=== PATIENT | male | born 1975 | race Caucasian/White ===

== ENCOUNTER 2016-09-17 16:18 | Inpatient (IN) | payer MEDICAID, OTHER ==
[~2016-09-17] VITALS: Ht 172.7 cm; Wt 71.0 kg
[2016-09-17] MEDS ORDERED: ADACEL/BOOSTRIX VACCINE (DIPHTH/PERTUSS/ACELL/TETANUS)0.5ML SYR (90715) IM ONE (17:00)
[2016-09-17] MEDS ORDERED: NS 1,000 ML IV ONE (17:00)
[2016-09-17] MEDS ORDERED: ISOVUE-370 76% 100ML VIAL (Q9967) As Ordered ONE (17:15)
[2016-09-17 17:27] LABS: BASO % 0.2 % (0.0-1.0); EOS % 0.4 % (0.0-3.0); LARGE UNSTAINED CELL # 0.1 K/mm3 (0.0-0.4); LARGE UNSTAINED CELL % 0.9 % (0.0-4.0); LYMPH % 13.2 % (24.0-44.0); MONO % 6.6 % (0.0-5.0); NEUTROPHILS # 11.8 K/mm3 (1.8-7.7); NEUTROPHILS % 78.6 % (36.0-66.0); PLATELET COUNT, AUTOMATED 165 k/mm3 (150-450)
[2016-09-17 17:42] LABS: MEAN CORPUSCULAR HEMOGLOBIN 31.2 pg (27.0-33.0); MEAN CORPUSCULAR HGB CONC 35.1 g/dl (32.0-36.5); MEAN CORPUSCULAR VOLUME 88.9 fl (80.0-96.0); RED CELL DISTRIBUTION WIDTH 12.3 % (11.5-14.5)
[2016-09-17] MEDS: MORPHINE 4 MG/ML 1ML SYRINGE IV PRN ×2 (17:42→17:50)
[2016-09-17 17:52] LABS: ALBUMIN 3.6 GM/DL (3.2-5.2); ALBUMIN/GLOBULIN RATIO 1.64 (1.00-1.93); ALKALINE PHOSPHATASE 54 U/L (45-117); ALT/SGPT 31 U/L (12-78); AMYLASE 50 U/L (25-115); ANION GAP 9 MEQ/L (8-16); AST/SGOT 37 U/L (15-37); BILIRUBIN,DIRECT 0.1 MG/DL (0.0-0.2); BILIRUBIN,TOTAL 0.4 MG/DL (0.2-1.0); BLOOD UREA NITROGEN 16 MG/DL (7-18); CALCIUM LEVEL 8.2 MG/DL (8.5-10.1); CARBON DIOXIDE LEVEL 23 MEQ/L (21-32); CHLORIDE LEVEL 107 MEQ/L (98-107); CREATININE FOR GFR 1.32 MG/DL (0.70-1.30); GLOMERULAR FILTRATION RATE > 60.0 (>60); GLUCOSE, FASTING 104 MG/DL (70-105); POTASSIUM SERUM 4.5 MEQ/L (3.5-5.1); SODIUM LEVEL 139 MEQ/L (136-145); TOTAL PROTEIN 5.8 GM/DL (6.4-8.2)
--- NOTE | 2016-09-17 18:06 | REP ---
CT HEAD WITHOUT CONTRAST: REASON: Headache after trauma. PRIORS: None. TECHNIQUE: 4.5 mm contiguous transaxial sections were obtained from the skull base to the cerebral convexities with thin cuts through the posterior fossa without the administration of intravenous contrast. FINDINGS: The ventricles and sulci are consistent with the patient's age. There are no extra-axial fluid collections. There is no mass effect. The deep cerebral white matter is consistent with the patient's age. The orbital and petrous structures, cerebellopontine angles, and posterior fossa are unremarkable. The sella turcica, cavernous, and paracavernous structures are essentially unremarkable. The visualized portions of the paranasal sinuses and mastoid air cells are clear. Images of the skull base show no gross abnormality. IMPRESSION: Essentially unremarkable CT examination of the brain. Signed by Lyle Fleming DO 09/17/2016 06:28 P
--- NOTE | 2016-09-17 18:08 | REP ---
CT CERVICAL SPINE WITHOUT CONTRAST: HISTORY: Pain in the neck after trauma. COMPARISON: None. Vertebral body height and alignment is within normal limits. The facet joints are well aligned bilaterally. There is no cervical spine fracture. There is mild degenerative disc narrowing seen at the C4-5 and C5-6 levels where there is anterior and posterior osteophytic ridging. There is no abnormal paraspinal soft tissue swelling. IMPRESSION: No fracture. Chronic changes as described above. Signed by Lyle Fleming DO 09/17/2016 06:29 P
[2016-09-17] MEDS ORDERED: NICOTINE 21MG/24HR 1 EA TRANSDERMAL TD ONE (18:30)
--- NOTE | 2016-09-17 18:35 | ECGEPIP ---
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
[2016-09-17] MEDS ORDERED: NEXI1CAP4 PO (18:43)
[2016-09-17] MEDS ORDERED: ALEV220T26 PO (18:43)
[2016-09-17] MEDS ORDERED: MORPHINE 4 MG/ML 1ML SYRINGE IV ONE ×2 (18:45→19:45)
[2016-09-17] MEDS ORDERED: NS 1,000 ML IV SCH (19:50)
[2016-09-17] MEDS: LR 1,000 ML IV SCH (19:50)
[2016-09-17] MEDS ORDERED: NALBUPHINE HCL 10 MG/ML AMP (J2300) IV PRN (20:00)
[2016-09-17] MEDS ORDERED: PROMETHAZINE INJ 25 MG/ML VIAL (J2550) IV PRN (20:00)
[2016-09-17] MEDS ORDERED: METOCLOPRAMIDE INJ 10MG/2ML VIAL (J2765) IV PRN (20:00)
[2016-09-17] MEDS ORDERED: ONDANSETRON 4MG/2ML VIAL (J2405) IV PRN (20:00)
[2016-09-17] MEDS ORDERED: EPIDURAL/PCA KEYS XX PRN (20:00)
[2016-09-17] MEDS ORDERED: diphenhydrAMINE INJ 50MG/ML VIAL (J1200) IV PRN (20:00)
[2016-09-17] MEDS ORDERED: NALOXONE INJ 0.4 MG/1 ML VIAL (J2310) IV PRN (20:00)
--- NOTE | 2016-09-17 20:14 | HPE ---
DATE OF ADMISSION: 09/17/2016 CHIEF COMPLAINT: Trauma. HISTORY OF PRESENT ILLNESS: The patient is a 41-year-old male who was in the [place] cutting down trees and when he had bent over to tie his shoe a tree very distant from him fell and fell onto his back. The diameter of the base of the tree was about 15 inches. The tree itself was 50-60 feet tall and the upper portions of it fell on his back. It pushed him to the ground and even he, as well as the tree, bounced after hitting the ground. This was a witnessed event and he did not have any loss of consciousness, did not have any neurologic complaints in his lower extremities or upper extremities. Did not complain of any abdominal pain. No nausea or vomiting. No fevers or chills. No evidence of respiratory complaints or shortness of breath. No head trauma at that time. Does not have any history of hematuria, although presented to the emergency room with some hematuria. Had undergone x-rays up at [facility] and was transferred here for further studies which revealed trauma to the lower back including probable kidney contusion, psoas muscle contusion and several lumbar spinous process fractures. PAST MEDICAL HISTORY: Significant for gastroesophageal (GE) reflux, history of osteoarthritis, history of subdural hematoma. MEDICATIONS: Include: - Nexium - Naprosyn PHYSICAL EXAMINATION: Reveals a 41-year-old male who looks stated age. HEENT: Reveals an atraumatic, normocephalic head with extraocular movements intact. Pupils are equal and reactive to light. Sclerae nonicteric. Oropharynx clear without exudate or lesions. Neck is supple without adenopathy. Lungs are clear to auscultation without crackles, wheezes or rhonchi. Heart is regular without murmur. Abdomen is soft, nondistended. He has some mild tenderness in the left lateral abdomen. He states that even though it is sore to palpation, it is not his abdominal wall that is sore, it is the pressure that it puts on his lower back and his flank area that hurts. On his back exam he does have some abrasions on his lower back area. No significant contusions, he is tender throughout this area on the left side just above his iliac crest extending for about 8-10 inches. He has some numbness in this area as well but no numbness into his lower extremities. He has all sensory as well as motor intact to his extremities, both upper and lower. He does have some abrasions on his left arm. He does complain of some mild discomfort on his left knee but without any abrasions, without any pain and discomfort with movement. The patient had a trauma with a lower back injury. Specifically he has a psoas muscle hematoma. He has fractures of the transverse processes of L1-L4 on the left-hand side. He has hematuria but otherwise no other significant intra-abdominal process. No respiratory or neurologic complaints. No evidence of extremity injuries. IMPRESSION AND PLAN: Neurologic. No significant neurologic injuries have occurred although he has some minimal numbness in the cutaneous area of his abrasion on his left back area. I anticipate this may be some contusion of superficial nerves in this area / skin nerves, but I would recommend that without any dermatomal distribution, etc., will continue his close evaluation. From an abdominal standpoint, will start him on a clear liquid diet today, progress him to a regular diet tomorrow if he is tolerating a clear liquid diet. 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 We will see how he does overnight and as long as his hematuria starts to clear up we may restart his nonsteroidals as well. From my standpoint, I do feel that we need to progress his activity as tolerated depending on what the orthopedic physicians make as recommendations for this. Dr. Justin Westfall will be seeing him for his lumbar fractures and otherwise we will keep him at bedrest tonight and progress his activity as per the orthopedic physician's recommendations.
[2016-09-17] MEDS ORDERED: MORPHINE 4 MG/ML 1ML SYRINGE IV PRN (20:45)
--- NOTE | 2016-09-17 20:49 | CR ---
DATE OF CONSULTATION: 09/17/2016 REASON FOR CONSULTATION: Lumbar spine fractures. 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 He describes no loss of consciousness. Complains of pain and soreness in his low back predominantly. Was able to get up to his knees and realized he really could not get up and his friend, who was there, a coworker, and they managed to walk him arm-in-arm out of the [place] after about an hour to the [place] and then transferred him to [facility] where he was evaluated and then transferred to [facility] for further evaluation and care. He was evaluated by the emergency room staff and is being admitted by Dr. Valdez, general surgeon, under the trauma protocol because of some microscopic hematuria. He was found to have multiple transverse process fractures and a hematoma in the lumbar spine. He complains of isolated soreness basically to the lumbar spine, it is quite uncomfortable and painful. He also does complain of numbness in the base of the lumbar spine radiating down toward the left hip. Does not complain of numbness or tingling in his lower extremities or his toes or feet and/or perineal numbness. Upper extremities he does not report any pain or soreness. His past medical history is otherwise fairly unremarkable, although he had a remote history of what he describes as a subdural hematoma that required some type of cauterization, sounds like it could have been an intracerebral hemorrhage from an aneurysm because they described the [place] [facility] [place] but that was quite a few years ago. Otherwise, he is on no medications. ALLERGIES: No allergies. No previous surgeries otherwise. He does smoke cigarettes. Does not drink alcohol excessively. 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 He is here with his friends and other family members. I examined him with Santi Valdez, the general surgeon. On exam, he is a healthy appearing male, alert, and he is oriented. He has no obvious trauma to his head and no tenderness of his cervical or thoracic spine. His upper extremities he can fully elevate up overhead. No tenderness over his shoulders, clavicles, humeri, elbows, forearms, wrists, or hands. There is an abrasion over the posterior aspect of the Left triceps area. His spine examination, lower on the lumbar side, there is marked tenderness with a reddish contusion area over the base of the lumbar spine, mainly on the left side with marked tenderness, also a decreased sensation in the skin to light touch in that area that extends down toward the iliac crest and just below toward the gluteal muscle area, then the sensation becomes normalized in both lower extremities. He has good strong pulses at the dorsalis pedis and posterior tibialis bilaterally. He has intact reflexes at the quadriceps and the ankles. Normal motor strength, ankle dorsiflexors and plantar flexors. It is painful to do a straight leg raise on the left side because it hurts his back, but I can passively internally and externally rotate his hip on the left side without pain or irritability in the groin and his right leg he can do a straight leg raise quite comfortably. His left knee has no effusion or evidence of medial, laterl , anterior or posterior laxity. RADIOGRAPHS: CT scan of his thoracic spine was unremarkable. Lumbar spine you can see multiple transverse process fractures, especially on the left side, but there also appears to be a transverse process fracture on the right side, it is either L3 or L4, and then on the sagittal image there may be an extension into L4, difficult to say. Head CT, chest CT, cervical spine CT was otherwise unremarkable. Abdomen and pelvis CT can see a hematoma in the psoas muscle around the left kidney. Formal radiographic readings from the radiologist are still pending. [facility] including Pelvis, left knee, thoracic and lumbar spine xrays were also reviewed. LABORATORY STUDIES: His hematocrit was 38.9, white count of 15, platelet count of 165. Chemistries were unremarkable and electrolytes. BUN 16, creatinine 1.32. Lactic acid was somewhat elevated at 2.1, calcium 8.2, CK was 873 with an MB fraction of 18.5, total protein 5.8. Urinalysis he had 8 red blood cells, otherwise it was unremarkable. IMPRESSION: Significant contusion with multiple transverse process fractures of his lumbar spine. Appears to be a stable injury but I will consult with our spine surgeon for formal activity recommendations and specifically bracing or not. Right now he is going to be admitted for pain control, observation, and monitor his renal function as well as monitor for the development of other potential abdominal or pelvic soft tissue trauma under the care of Dr. Valdez, and I discussed this with him in detail. [place]
[2016-09-17] MEDS: ONDANSETRON 4MG/2ML VIAL (J2405) IV PRN (20:53)
[2016-09-17] MEDS: MORPHINE PCA 1MG/ML 100ML CADD IV PRN (22:29)
[2016-09-17 22:35] VITALS: BP 144/81
[2016-09-17] MEDS: DOCUSATE SODIUM 100 MG CAP PO SCH (22:51)
[2016-09-17 23:00] VITALS: BP 147/73
[2016-09-17 23:30] VITALS: BP 125/79
[2016-09-17] MEDS: ACETAMINOPHEN TAB 650MG DOSE (2X325MG) PO PRN (23:31)
[2016-09-18] VITALS (9 sets, daily range): BP systolic 113–140; BP diastolic 53–86
[2016-09-18] MEDS: LR 1,000 ML IV SCH ×4 (00:17→21:52)
--- NOTE | 2016-09-18 03:37 | REP ---
CT ABDOMEN AND PELVIS REASON: Trauma. CONTRAST: 100 mL Isovue-370. COMPARISON: There is no prior for comparison. The liver, gallbladder, spleen, pancreas, adrenal glands, and kidneys are within normal limits. The abdominal aorta and para-aortic regions are within normal limits. There is no free fluid or free air in the abdomen. The bowel loops and their mesenteries are within normal limits. There is no evidence of an intra-abdominal mass or adenopathy. CT PELVIS: There is fatty infiltration along the posterior and posterolateral aspects of the left psoas muscle which is slightly enlarged compared to the right. This is also seen inferior to the left kidney in the lower retroperitoneum. There is no free fluid or free air in the pelvis. There is no mass or adenopathy. The pelvic bowel loops are unremarkable. Bone window technique throughout the exam shows L1 through L4 left transverse process fractures. There are no other fractures. There is fatty infiltration of the subcutaneous fat over the left buttock region. IMPRESSION: 1. No evidence of acute intra-abdominal solid organ trauma or injury. 2. Left psoas muscle contusion with multiple lumbar spine left-sided transverse process fractures and soft tissue contusion to the deep subcutaneous fat over the left buttock region and over the left multifidi and erector spinae muscles. Signed by Lyle Fleming DO 09/18/2016 12:19 P
--- NOTE | 2016-09-18 03:39 | REP ---
THORACIC SPINE CT: REASON: Pain after trauma. There is degenerative disc space narrowing which is mild to moderate involving the mid and lower thoracic levels. Vertebral body height and alignment is within normal limits. There is no evidence of a fracture. IMPRESSION: Chronic changes. No evidence of a thoracic spine fracture. Signed by Lyle Fleming DO 09/18/2016 12:19 P
--- NOTE | 2016-09-18 03:41 | REP ---
CT CHEST AFTER INTRAVENOUS CONTRAST ADMINISTRATION: REASON: Trauma. COMPARISON: None. CONTRAST UTILIZED: 100 mL Isovue-370. There are benign calcified right hilar lymph nodes. There is no mediastinal or hilar adenopathy. There are no pleural or pericardial effusions. Evaluation of the lung [place] shows streaky bibasilar opacities most consistent with subsegmental atelectatic changes. There are no abnormal nodules or masses. There is no evidence of pulmonary contusion. There is no pneumothorax. Bone window technique throughout the exam shows no evidence of a thoracic spine or rib fracture. See corresponding reports for description of lumbar spine transverse process fractures. There is no evidence of an intrathoracic vascular abnormality. IMPRESSION: No evidence of acute intrathoracic disease with findings as described above. Signed by Lyle Fleming DO 09/18/2016 12:19 P
--- NOTE | 2016-09-18 03:45 | REP ---
CT LUMBAR SPINE: REASON: Trauma. Vertebral body height and alignment is within normal limits. There is mild posterior disc space narrowing at every level. There is mild anterior lipping seen involving L3 through L5 inclusive. Fractures of the transverse process of L1, L2, L3, and L4 on the left noted. There is a left psoas muscle contusion with hematoma. There is deep subcutaneous fat contusion over the multifidi and erector spinae on the left and over the gluteus on the left slightly. IMPRESSION: Lumbar spine transverse process fractures and psoas muscle hematoma with contusion as described above. Signed by Lyle Fleming DO 09/18/2016 12:18 P
[2016-09-18] MEDS: ACETAMINOPHEN TAB 650MG DOSE (2X325MG) PO PRN ×2 (06:53→19:15)
[2016-09-18 07:00] LABS: MEAN CORPUSCULAR HEMOGLOBIN 31.6 pg (27.0-33.0); MEAN CORPUSCULAR HGB CONC 34.7 g/dl (32.0-36.5); MEAN CORPUSCULAR VOLUME 91.1 fl (80.0-96.0); RED CELL DISTRIBUTION WIDTH 12.4 % (11.5-14.5); WHITE BLOOD COUNT 8.1 K/mm3 (4.0-10.0)
[2016-09-18] MEDS: ONDANSETRON 4MG/2ML VIAL (J2405) IV PRN ×2 (07:07→14:10)
[2016-09-18 07:13] LABS: ANION GAP 7 MEQ/L (8-16); BLOOD UREA NITROGEN 13 MG/DL (7-18); CALCIUM LEVEL 7.6 MG/DL (8.5-10.1); CARBON DIOXIDE LEVEL 27 MEQ/L (21-32); CHLORIDE LEVEL 107 MEQ/L (98-107); CREATININE FOR GFR 1.15 MG/DL (0.70-1.30); GLOMERULAR FILTRATION RATE > 60.0 (>60); GLUCOSE, FASTING 106 MG/DL (70-105); POTASSIUM SERUM 3.8 MEQ/L (3.5-5.1); SODIUM LEVEL 141 MEQ/L (136-145)
[2016-09-18] MEDS: PANTOPRAZOLE 40MG TAB (PROTONIX) PO SCH (08:16)
[2016-09-18] MEDS: DOCUSATE SODIUM 100 MG CAP PO SCH ×2 (08:16→21:51)
[2016-09-18] MEDS: MORPHINE PCA 1MG/ML 100ML CADD IV PRN (13:54)
[2016-09-18] MEDS: NICOTINE 21MG/24HR 1 EA TRANSDERMAL TD SCH (18:33)
[2016-09-18] MEDS: IBUPROFEN 600 MG TAB PO PRN (18:34)
[2016-09-18] MEDS ORDERED: CALCIUM CARBONATE 500 MG CHEW U/D PO PRN (20:15)
[2016-09-19] VITALS (7 sets, daily range): BP systolic 127–168; BP diastolic 70–91
[2016-09-19 07:00] LABS: MEAN CORPUSCULAR HEMOGLOBIN 31.9 pg (27.0-33.0); MEAN CORPUSCULAR HGB CONC 34.2 g/dl (32.0-36.5); MEAN CORPUSCULAR VOLUME 93.2 fl (80.0-96.0); RED CELL DISTRIBUTION WIDTH 12.2 % (11.5-14.5); WHITE BLOOD COUNT 8.2 K/mm3 (4.0-10.0)
[2016-09-19 07:09] LABS: ANION GAP 7 MEQ/L (8-16); BLOOD UREA NITROGEN 8 MG/DL (7-18); CALCIUM LEVEL 7.9 MG/DL (8.5-10.1); CARBON DIOXIDE LEVEL 27 MEQ/L (21-32); CHLORIDE LEVEL 109 MEQ/L (98-107); CREATININE FOR GFR 1.06 MG/DL (0.70-1.30); GLOMERULAR FILTRATION RATE > 60.0 (>60); GLUCOSE, FASTING 102 MG/DL (70-105); SODIUM LEVEL 143 MEQ/L (136-145)
[2016-09-19] MEDS: DOCUSATE SODIUM 100 MG CAP PO SCH ×2 (07:40→20:54)
[2016-09-19] MEDS: PANTOPRAZOLE 40MG TAB (PROTONIX) PO SCH (07:40)
[2016-09-19] MEDS: IBUPROFEN 600 MG TAB PO PRN (07:41)
[2016-09-19] MEDS: NICOTINE 21MG/24HR 1 EA TRANSDERMAL TD SCH (07:41)
[2016-09-19] MEDS ORDERED: PERCOCET 5MG/325MG TAB PO PRN (08:00)
[2016-09-19] MEDS: PERCOCET 5MG/325MG TAB PO PRN (09:33)
[2016-09-19] MEDS: KETOROLAC 30 MG/ML VIAL (J1885) IV SCH ×2 (13:40→20:54)
[2016-09-20] MEDS: KETOROLAC 30 MG/ML VIAL (J1885) IV SCH ×2 (02:00→08:00)
[2016-09-20 06:00] VITALS: BP 121/78
[2016-09-20 07:37] LABS: MEAN CORPUSCULAR HEMOGLOBIN 32.4 pg (27.0-33.0); MEAN CORPUSCULAR HGB CONC 35.7 g/dl (32.0-36.5); MEAN CORPUSCULAR VOLUME 90.6 fl (80.0-96.0); RED CELL DISTRIBUTION WIDTH 12.1 % (11.5-14.5); WHITE BLOOD COUNT 7.2 K/mm3 (4.0-10.0)
[2016-09-20 08:01] LABS: ANION GAP 6 MEQ/L (8-16); BLOOD UREA NITROGEN 8 MG/DL (7-18); CALCIUM LEVEL 7.9 MG/DL (8.5-10.1); CARBON DIOXIDE LEVEL 27 MEQ/L (21-32); CHLORIDE LEVEL 111 MEQ/L (98-107); CREATININE FOR GFR 1.11 MG/DL (0.70-1.30); GLOMERULAR FILTRATION RATE > 60.0 (>60); GLUCOSE, FASTING 107 MG/DL (70-105); POTASSIUM SERUM 4.4 MEQ/L (3.5-5.1); SODIUM LEVEL 144 MEQ/L (136-145)
[2016-09-20] MEDS: NICOTINE 21MG/24HR 1 EA TRANSDERMAL TD SCH (08:19)
[2016-09-20] MEDS: PANTOPRAZOLE 40MG TAB (PROTONIX) PO SCH (08:19)
[2016-09-20] MEDS: PERCOCET 5MG/325MG TAB PO PRN (08:19)
[2016-09-20] MEDS: DOCUSATE SODIUM 100 MG CAP PO SCH (08:56)
[2016-09-20] MEDS ORDERED: PERCOCET PO (10:02)
== END 2016-09-20 11:03 | disposition home or self-care (01) | DRG 347 ==
LOC: M ED 19:02 → M ED INP 19:50 → M MSPAV 22:10
PROVIDERS: ADMIT Surgery; ATTEND Surgery
DX: S32.019A Unspecified fracture of first lumbar vertebra, initial encounter for closed fracture (principal); F17.210 Nicotine dependence, cigarettes, uncomplicated; S30.0XXA Contusion of lower back and pelvis, initial encounter; K21.9 Gastro-esophageal reflux disease without esophagitis; M19.90 Unspecified osteoarthritis, unspecified site; S30.1XXA Contusion of abdominal wall, initial encounter; R31.29 Other microscopic hematuria; W20.8XXA Other cause of strike by thrown, projected or falling object, initial encounter; Y92.009 Unspecified place in unspecified non-institutional (private) residence as the place of occurrence of the external cause; S32.049A Unspecified fracture of fourth lumbar vertebra, initial encounter for closed fracture; S32.029A Unspecified fracture of second lumbar vertebra, initial encounter for closed fracture; S32.039A Unspecified fracture of third lumbar vertebra, initial encounter for closed fracture

== ENCOUNTER 2022-04-08 00:19 | Observation (INO) | payer BC, MEDICAID ==
[~2022-04-08] VITALS: Ht 172.7 cm; Wt 65.7 kg
[~2022-04-08 00:19] MED LIST: ALEV220T26 PO; NEXI1CAP4 PO; PERCOCET PO
[2022-04-09] MEDS ORDERED: HEPARIN SOD (PORCINE) 5000UNITS/ML 1ML VIAL/SYRINGE SC SCH (00:05)
[2022-04-09] MEDS ORDERED: ACETAMINOPHEN TAB 650MG DOSE (2X325MG) PO PRN (00:05)
[2022-04-09] MEDS ORDERED: OXAZEPAM 15MG CAP PO SCH (00:05)
[2022-04-09] MEDS ORDERED: LORazepam 2 MG TAB PO PRN (00:05)
[2022-04-09] MEDS ORDERED: MOM 30ML SUSPENSION UDC PO PRN (00:05)
[2022-04-09 07:50] VITALS: BP 146/84
[2022-04-09 07:55] VITALS: BP 146/84
[2022-04-09] MEDS ORDERED: LR 1,000 ML IV SCH (08:50)
[2022-04-09] MEDS ORDERED: PERCOCET 5MG/325MG TAB PO PRN (08:55)
[2022-04-09] MEDS ORDERED: FOLIC ACID 1MG TAB PO SCH ×2 (09:00)
[2022-04-09] MEDS ORDERED: THIAMINE 100 MG TAB PO SCH ×2 (09:00)
[2022-04-09] MEDS ORDERED: MULTIVITAMINS/MINERALS THERAP 1 TAB PO SCH ×2 (09:00)
[2022-04-09] MEDS ORDERED: PANTOPRAZOLE 40MG TAB (PROTONIX) PO SCH (09:00)
[2022-04-09] MEDS ORDERED: NICOTINE 21MG/24HR 1 EA TRANSDERMAL TD SCH (09:00)
[2022-04-09] MEDS ORDERED: AMPICILLIN SOD/SULBACTAM SOD 3 GM in D5W MINI-BAG PLUS 100 ML IV SCH (10:00)
[2022-04-09 10:03] LABS: HEMATOCRIT 43.7 % (42.0-52.0); HEMOGLOBIN 15.1 g/dl (13.5-17.5); MEAN CORPUSCULAR HEMOGLOBIN 31.9 pg (27.0-33.0); MEAN CORPUSCULAR HGB CONC 34.6 g/dl (32.0-36.5); MEAN CORPUSCULAR VOLUME 92.2 fl (80.0-96.0); PLATELET COUNT, AUTOMATED 204 10^3/uL (150-450); RED BLOOD COUNT 4.74 10^6/uL (4.30-6.10); WHITE BLOOD COUNT 11.1 10^3/uL (4.0-10.0)
[2022-04-09] MEDS ORDERED: LIDOCAINE 1% MDV 20ML VIAL As Ordered ONE (10:28)
[2022-04-09 10:47] LABS: ALT/SGPT 35 U/L (12-78); BILIRUBIN,TOTAL 0.5 MG/DL (0.2-1.0); BLOOD UREA NITROGEN 12 MG/DL (7-18); CALCIUM LEVEL 8.9 MG/DL (8.5-10.1); CARBON DIOXIDE LEVEL 24 MEQ/L (21-32); CHLORIDE LEVEL 109 MEQ/L (98-107); CREATININE FOR GFR 0.98 MG/DL (0.70-1.30); GLOMERULAR FILTRATION RATE > 60.0 (>60); GLUCOSE, FASTING 93 MG/DL (70-100); POTASSIUM SERUM 5.7 MEQ/L (3.5-5.1); SODIUM LEVEL 138 MEQ/L (136-145)
[2022-04-09] MEDS ORDERED: FIOR1CAP PO (11:14)
[2022-04-09] MEDS ORDERED: VITMTA PO (11:14)
[2022-04-09] MEDS ORDERED: ALEV220T22 PO (11:14)
[2022-04-09] MEDS ORDERED: HOME MED LIST COMPLETE! XX SCH (11:15)
[2022-04-09] MEDS ORDERED: KETOROLAC 30 MG/ML 1ML VIAL IV PRN (11:25)
[2022-04-09] MEDS ORDERED: AMOX875T2 PO (15:20)
== END 2022-04-09 14:52 | disposition left against medical advice (07) ==
LOC: PREINTOOBSV 00:19 → PREOBSVTOIN 01:52 → INTOOBSV 04-09 07:36 → M MS5PR 04-09 07:36
PROVIDERS: ADMIT Family Medicine; ATTEND Family Medicine
DX: S51.801A Unspecified open wound of right forearm, initial encounter (principal); S51.032A Puncture wound without foreign body of left elbow, initial encounter; Z53.20 Procedure and treatment not carried out because of patient's decision for unspecified reasons; W54.0XXA Bitten by dog, initial encounter; Y92.009 Unspecified place in unspecified non-institutional (private) residence as the place of occurrence of the external cause; Y99.9 Unspecified external cause status; K21.9 Gastro-esophageal reflux disease without esophagitis; D72.829 Elevated white blood cell count, unspecified; F17.210 Nicotine dependence, cigarettes, uncomplicated; Z79.899 Other long term (current) drug therapy; E73.9 Lactose intolerance, unspecified; Y93.89 Activity, other specified
CPT/HCPCS: 80053; 80307; 83605; 85027; 86140; 87040; 96361; 96365; 96366; J0295